=== PATIENT | female | born 1985 | race Caucasian/White ===

== ENCOUNTER 2017-10-03 13:05 | Emergency (ER) | payer OTHER, MEDICAID, SELFPAY ==
[2017-10-03 13:13] VITALS: BP 150/97; PULSE 101; RESP 16; TEMP 36.9; O2SAT 95; BMI 34.0
--- NOTE | 2017-10-03 13:59 | DI.US.S_ITS ---
PROCEDURE: US PELVIC COMPLETE INDICATIONS: PAIN, BLEEDING TECHNIQUE: Real-time scanning was performed of the pelvic organs, with image documentation. Additional endovaginal scanning was necessary due to incomplete visualization of the adnexal and endometrial structures by transabdominal scanning. COMPARISON: None. FINDINGS: Transabdominal scanning: Limited scanning through the kidneys shows no hydronephrosis. No pathologic free abdominal or pelvic fluid. Endovaginal scanning: Uterus: Uterus is anteverted measuring 7.0 x 3.2 x 4.2 cm. The endometrium measures 7.9 mm in combined thickness. Ovaries: Right ovary measures 4.0 x 2.2 x 2.1 cm. Left ovary measures 2.5 x 1.6 x 2.0 cm. IMPRESSION: Normal pelvic ultrasound exam. No findings to explain clinical symptoms. Dictated by: Elina Asif M.D. on 10/03/2017 at 15:47 Approved by: Elina Asif M.D. on 10/03/2017 at 15:49
[2017-10-03] MEDS: HALOPERIDOL 5 MG/ML VIAL 1 MG IV (14:07)
[2017-10-03] MEDS: HYDROMORPHONE 0.5 MG INJ 1 MG IV (14:07)
[2017-10-03 14:11] LABS: Add Manual Diff / Slide Review NO; Basophils Percent Auto 0.2 % (0-2); Eosinophils Percent Auto 2.1 % (2-4); Hematocrit 41.8 % (36-46); Hemoglobin 14.5 g/dL (12.0-16.0); Lymphocytes Percent Auto 36.1 % (25-40); Mean Corpuscular HGB Conc 34.7 % (30-36); Mean Corpuscular Hemoglobin 29.5 PG (26-34); Mean Corpuscular Volume 85.2 fL (80-100); Monocytes Percent Auto 7.7 % (3-14); Neutrophils Absolute Auto 5200 /uL (3000-5900); Neutrophils Percent Auto 53.9 % (50-75); Platelet Count 314 X10^3/uL (150-400); Red Cell Distribution Width 13.8 % (11.6-14.8); White Blood Cell Count 9.6 X10^3/uL (4.5-11.0)
[2017-10-03 14:24] LABS: Alanine Aminotransferase 18 IU/L (9-52); Albumin 4.7 g/dL (3.5-5.0); Albumin Globulin Ratio 1.7 (1.0-2.8); Alkaline Phosphatase 59 U/L (38-126); Aspartate Aminotransferase 19 IU/L (14-36); Bilirubin Total 0.4 mg/dL (0.2-1.3); Blood Urea Nitrogen 10 mg/dL (7-17); Calcium 9.8 mg/dL (8.4-10.2); Carbon Dioxide 24 mmol/L (22-32); Chloride 105 mmol/L (98-107); Estimated Glomerular Filt Rate > 60.0 mL/min (>60); Globulin 2.7 g/dL (1.7-4.1); Glucose 102 mg/dL (70-100); HEMOLYSIS < 15 (0-50); Lipase 69 U/L (23-300); Potassium 4.3 mmol/L (3.4-5.1); Sodium 140 mmol/L (137-145); Total Protein 7.4 g/dL (6.3-8.2)
[2017-10-03 14:49] VITALS: BP 119/75; PULSE 90; RESP 16; TEMP 36.4; O2SAT 100
[2017-10-03 15:29] LABS: Bacteria Urine None Seen
[2017-10-03 16:07] LABS: Appearance Urine UA CLEAR; Bilirubin Urine UA NEGATIVE (NEGATIVE); Color Urine UA YELLOW; Glucose Urine UA NEGATIVE (Normal); Ketones Urine UA NEGATIVE (NEGATIVE); Leukocyte Esterase Urine UA NEGATIVE (NEGATIVE); Nitrite Urine UA Negative (Negative); Occult Blood Urine UA 3+ (Negative); Protein Urine UA NEGATIVE (Negative); Specific Gravity Urine UA 1.015 (1.000-1.035); Urobilinogen Urine UA 0.2 E.U./dL (0.2)
[2017-10-03 16:14] LABS: Culture Indicated Urine Cult Not Indicated; RBC Urine 10-30/HPF (0-5/HPF); Squamous Epithelial Cell Urine 5-10 /HPF; WBC Urine 1-5/HPF (0-5/HPF)
[2017-10-03 16:41] VITALS: BP 130/83; PULSE 91; RESP 16; TEMP 36.7; O2SAT 99
--- NOTE | 2017-10-03 16:50 | DI.CT.S_ITS ---
PROCEDURE: CT ABDOMEN PELVIS W CON INDICATIONS: lower abdominal pain TECHNIQUE: After the administration of intravenous contrast, 5 mm thick sections acquired from the diaphragm to the symphysis. 5 mm coronal and sagittal reformats were acquired. For radiation dose reduction, the following was used: automated exposure control, adjustment of mA and/or kV according to patient size. COMPARISON: None. FINDINGS: Image quality: Excellent. ABDOMEN: Lung bases: Lung bases are clear. Heart size is normal. Solid organs: Liver is normal in size and enhancement. Gallbladder appears normal, partially contracted. Biliary system is non dilated. Pancreas enhances normally. Spleen is normal in size and enhancement. No adrenal nodules. Kidneys demonstrate normal size and enhancement, without hydronephrosis. Peritoneum and bowel: Bowel loops demonstrate normal wall thickness and caliber. No free fluid or air. Nodes and vessels: No retroperitoneal or mesenteric adenopathy by size criteria. Aorta and inferior vena cava are normal in size. Miscellaneous: No ventral hernias. PELVIS: Genitourinary: Bladder wall thickness is normal. Miscellaneous: No inguinal hernias or adenopathy. Bones: No suspicious bony lesions. No vertebral body compression fractures. IMPRESSION: Normal retinal appendix could not be located but there is no CT evidence of appendicitis. No diverticulitis is found. No sign of a ruptured ovarian cyst. Overall the source of reported lower abdominal pain is not identified. Dictated by: Dave Silveira M.D. on 10/03/2017 at 17:14 Approved by: Dave Silveira M.D. on 10/03/2017 at 17:15
[2017-10-03 16:54] VITALS: BP 124/70; PULSE 76; RESP 14; O2SAT 97
--- NOTE | 2017-10-03 17:40 | ED_ITS ---
HPI - Female Genitourinary General Chief complaint: Urogenital-Female Stated complaint: OVARIAN CYST DISEASE, PAINFUL Time Seen by Provider: 10/03/17 13:58 History of Present Illness HPI Narrative: HPI 32 y/o female with a history of ovarian cyst presents complaining of severe cramping lower abdominal pain and vaginal bleeding of approximately 18 hours duration; LMP 2 weeks ago. Denies fevers, chills, nausea, vomiting, dysuria, hematuria, . No known history of kidney stones, is sexually active. M/S/F/SocHx notable for: please see HPI; remainder reviewed with patient and in chart. ROS: Negative constitutional, eye, cardiovascular, pulmonary, GI, , MSK, skin , neurologic, psychiatric, endocrine unless noted in the HPI. Exam Gen: pleasant, laying on side, moaning, sweating heavily. HEENT: NC, AT, PEERL, EOMI. Resp: Clear to auscultation bilaterally, normal work of breathing, no accessory muscle usage. Card: Regular rate and rhythm with no murmurs, rubs, or gallops, extremities warm and well perfused. GI: Non-tender to palpation throughout all quadrants, no epigastric tenderness to palpation. No rebound, no guarding. : Chaperoned exam with normal female external genitalia, vaginal canal visually normal without lesions, ongoing dark bloody discharge from cervical os. MSK: No visible deformities, strength and tone without visually appreciable deficit. Skin: Normal color with no visible lesions. Neuro: AO x 3, no facial asymmetry, vision and hearing WNL. Psych: Mood and affect appropriate. Labs / Imaging (pertinent): WBC 9.6, Hb 14.5, PLT 314, Na 140, K 4.3, lipase 69, AST 19, ALT 18. HCG negative. GC and wet [place] pending. UA ? negative nitrites, negative leukocyte esterase, 5-10 epithelial cells, 10- 30 RBCs, 1-5 WBCs, no bacteria. Pelvic Ultrasound: normal pelvic ultrasound exam. No findings to explain clinical symptoms. CT abdomen/pelvis: normal retinal appendix could not be located but there is no CT evidence of appendicitis. No diverticulitis is found. No sign of a ruptured ovarian cyst. Overall the source of reported lower abdominal pain is not identified. MDM Previous chart, nursing note, and vitals reviewed. A: 32 y/o female with a history of ovarian cyst presents complaining of severe cramping lower abdominal pain and vaginal bleeding of approximately 18 hours duration; LMP 2 weeks ago. DDx: hemorrhagic cyst, ovarian torsion, , ectopic , endometriosis, PID, tuboovarian abscess, UTI, pyelonephritis, appendicitis, ureterolithiasis,. Evaluation: patient with vaginal bleeding from her cervical os, history and exam without clear findings suggestive of PID, negative test, transvaginal ultrasound without evidence of abnormality, CT abdomen pelvis without evidence of abnormality, CBC, CMP clinically WNL. UA without evidence of infection. Suspect cramping secondary to abnormal uterine bleeding. Hemodynamically stable. RX for [place] 5-325?10 provided. Patient discharge with ANESTHESIOLOGY RESIDENT follow-up recommended. Impression: cramping, vaginal bleeding (please reference below for remainder of encounter information) Related Data Home Medications Medication Instructions Recorded Confirmed acetaminophen-pamabrom [Midol] 1 tab PO PRN PRN 10/03/17 10/03/17 albuterol sulfate [ProAir HFA] 1 puff INHALATION PRN PRN 10/03/17 10/03/17 alprazolam 0.5 mg PO PRN PRN 10/03/17 10/03/17 buspirone 20 mg PO QPM 10/03/17 10/03/17 fluticasone-salmeterol [Advair 1 puff INHALATION BID 10/03/17 10/03/17 Diskus] ibuprofen 1 dose PO PRN PRN 10/03/17 10/03/17 mirtazapine 45 mg PO QPM 10/03/17 10/03/17 quetiapine 25 - 50 mg PO BEDTIME 10/03/17 10/03/17 sertraline 100 mg PO QPM 10/03/17 10/03/17 sumatriptan succinate 1 tab PO PRN PRN 10/03/17 10/03/17 Allergies Allergy/AdvReac Type Severity Reaction Status Date / Time acetaminophen [From Vicodin] Allergy Intermediate Hives Verified 10/03/17 13:17 hydrocodone [From Vicodin] Allergy Intermediate Hives Verified 10/03/17 13:17 Exam Initial Vital Signs Initial Vital Signs: Vital Signs Temperature 98.4 F 10/03/17 13:13 Pulse Rate 101 H 10/03/17 13:13 Respiratory Rate 16 10/03/17 13:13 Blood Pressure 150/97 H 10/03/17 13:13 Pulse Oximetry 95 10/03/17 13:13 Course Orders Ordered: ED Orders 10/03/17 13:59 US pelvic complete Stat 10/03/17 14:00 Complete Blood Count AUTO DIFF Stat Comprehensive Metabolic Panel Stat Lipase Stat 10/03/17 14:30 Chlamydia/Gonorrhea RNA (SWAB) Stat Wet Prep Tric BV Helen Stat 10/03/17 15:20 Urinalysis and Microscopic Stat 10/03/17 16:50 CT abdomen pelvis w con Stat 10/03/17 17:37 Wet Prep Tric BV Helen Stat Discontinued Medications Haloperidol (Haldol) 1 mg IV NOW ONE Stop: 10/03/17 13:59 Last Admin: 10/03/17 14:07 Dose: 1 mg Haloperidol (Haldol) 2 mg IV NOW ONE Stop: 10/03/17 17:35 Hydromorphone HCl (Dilaudid) 1 mg IV NOW ONE Stop: 10/03/17 13:59 Last Admin: 10/03/17 14:07 Dose: 1 mg Hydromorphone HCl (Dilaudid) 0.5 mg IV NOW ONE Stop: 10/03/17 17:35 Ketorolac Tromethamine (Toradol) 15 mg IV NOW ONE Stop: 10/03/17 17:35 Vital Signs - 8 hr 10/03/17 13:13 10/03/17 14:49 10/03/17 16:41 Temperature 98.4 F 97.6 F 98.0 F Pulse Rate 101 H 90 91 H Respiratory Rate 16 16 16 Blood Pressure 150/97 H Blood Pressure [Left Arm] 119/75 130/83 H Pulse Oximetry 95 100 99 10/03/17 16:54 Temperature Pulse Rate 76 Respiratory Rate 14 Blood Pressure Blood Pressure [Left Arm] 124/70 H Pulse Oximetry 97 MDM - Female Genitourinary Lab Data Result diagrams: 10/03/17 14:00 10/03/17 14:00 Lab Results 10/03/17 10/03/17 10/03/17 Range/Units 14:00 14:00 15:20 WBC 9.6 (4.5-11.0) X10^3/uL RBC 4.90 (4.0-5.2) X10^6/uL Hgb 14.5 (12.0-16.0) g/dL Hct 41.8 (36-46) % MCV 85.2 (80-100) fL MCH 29.5 (26-34) PG MCHC 34.7 (30-36) % RDW 13.8 (11.6-14.8) % Plt Count 314 (150-400) X10^3/uL Neut % (Auto) 53.9 (50-75) % Lymph % (Auto) 36.1 (25-40) % Haakon % (Auto) 7.7 (3-14) % Eos % (Auto) 2.1 (2-4) % Baso % (Auto) 0.2 (0-2) % Neut # (Auto) 5200 (1563-4384) /uL Sodium 140 (137-145) mmol/L Potassium 4.3 (3.4-5.1) mmol/L Chloride 105 (98-107) mmol/L Carbon Dioxide 24 (22-32) mmol/L BUN 10 (7-17) mg/dL Creatinine 1.00 (0.52-1.04) mg/dL Estimated GFR > 60.0 (>60) mL/min BUN/Creatinine Ratio 10.0 (6-22) Glucose 102 H (70-100) mg/dL Calcium 9.8 (8.4-10.2) mg/dL Total Bilirubin 0.4 (0.2-1.3) mg/dL AST 19 (14-36) IU/L ALT 18 (9-52) IU/L Alkaline Phosphatase 59 (38-126) U/L Total Protein 7.4 (6.3-8.2) g/dL Albumin 4.7 (3.5-5.0) g/dL Globulin 2.7 (1.7-4.1) g/dL Albumin/Globulin Ratio 1.7 (1.0-2.8) Lipase 69 (23-300) U/L Urine Color Yellow Urine Appearance Clear Urine pH 7.0 (4.5-8.0) Ur Specific [place] 1.015 (1.000-1.035) Urine Protein Negative (Negative) Urine Glucose (UA) Negative (Normal) g/dL Urine Ketones Negative (NEGATIVE) Urine Occult Blood 3+ H (Negative) Urine Nitrate Negative (Negative) Urine Bilirubin Negative (NEGATIVE) Urine Urobilinogen 0.2 (0.2) E.U./dL Ur Leukocyte Esterase Negative (NEGATIVE) Urine RBC 10-30/hpf H (0-5/HPF) Urine WBC 1-5/hpf (0-5/HPF) Ur Squamous Epith Cells 5-10 /hpf H Urine Bacteria None seen (None) Ur Culture Indicated? Cult not indicated Micro UA Comment Not Reportable Discharge Plan Departure Prescriptions: No Action quetiapine 25 mg tablet 25 - 50 mg PO BEDTIME RF: 0 sumatriptan succinate 100 mg tablet 1 tab PO PRN PRN (Reason: Migraine Headache) RF: 0 alprazolam 0.5 mg tablet 0.5 mg PO PRN PRN (Reason: Panic Attack(S)) RF: 0 mirtazapine 45 mg tablet 45 mg PO QPM RF: 0 fluticasone-salmeterol [Advair Diskus] 100-50 mcg/dose blister with device 1 puff Inhalation BID RF: 0 albuterol sulfate [ProAir HFA] 90 mcg/actuation HFA aerosol inhaler 1 puff Inhalation PRN PRN (Reason: Shortness Of Breath) RF: 0 sertraline 50 mg tablet 100 mg PO QPM RF: 0 acetaminophen-pamabrom [Midol] 500-25 mg Tablet 1 tab PO PRN PRN (Reason: Cramps) RF: 0 buspirone 10 mg Tablet 20 mg PO QPM RF: 0 ibuprofen 200 mg Tablet 1 dose PO PRN PRN (Reason: Pain, Mild) RF: 0
[2017-10-03] MEDS: HALOPERIDOL 5 MG/ML VIAL 2 MG IV (18:05)
[2017-10-03] MEDS: KETOROLAC 60 MG/2 ML VIAL 15 MG IV (18:05)
[2017-10-03] MEDS: HYDROMORPHONE 1 MG INJ 0.5 MG IV (18:05)
[2017-10-03 18:29] VITALS: BP 131/85; PULSE 86; RESP 16; O2SAT 95
== END 2017-10-03 18:38 | disposition home or self-care (01) ==
PROVIDERS: Emergency Provider Emergency Medicine; Family Provider Family Medicine
DX: N93.9 Abnormal uterine and vaginal bleeding, unspecified (principal)
CPT/HCPCS: 36591; 74177; 76830; 76856; 80053; 81001; 81025; 83690; 85025; 87210; 87491; 87591; 96374; 96375; 96376; 99283; 99284; J1170; J1630; J1885

== ENCOUNTER 2017-12-13 11:32 | Emergency (ER) | payer OTHER, MEDICAID, SELFPAY ==
[2017-12-13 11:38] VITALS: BP 139/88; PULSE 89; RESP 14; TEMP 36.4; O2SAT 96; BMI 34.7
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
[2017-12-13 12:44] VITALS: BP 122/72; PULSE 72; RESP 14; O2SAT 98
== END 2017-12-13 12:46 | disposition home or self-care (01) ==
PROVIDERS: Emergency Provider Internal Medicine; Family Provider Family Medicine
DX: S16.1XXA Strain of muscle, fascia and tendon at neck level, initial encounter (principal); S29.019A Strain of muscle and tendon of unspecified wall of thorax, initial encounter; M62.830 Muscle spasm of back; V43.52XA Car driver injured in collision with other type car in traffic accident, initial encounter
CPT/HCPCS: 99282

== ENCOUNTER → 2019-05-14 13:40 | Outpatient (CLI) | payer OTHER, SELFPAY ==
[2019-05-14 16:07] LABS: BUN Creatinine Ratio 21.3 (6-22); Blood Urea Nitrogen 20 mg/dL (7-17); Calcium 10.3 mg/dL (8.4-10.2); Carbon Dioxide 29 mmol/L (22-32); Chloride 100 mmol/L (98-107); Estimated Glomerular Filt Rate > 60.0 mL/min (>60); Glucose 90 mg/dL (70-100); HEMOLYSIS < 15 (0-50); Potassium 4.8 mmol/L (3.4-5.1); Sodium 138 mmol/L (137-145)
== END ==
PROVIDERS: Family Provider Family Medicine; Referring Provider Psychiatry & Neurology Psychiatry; Visit Provider Psychiatry & Neurology Psychiatry
DX: Z51.81 Encounter for therapeutic drug level monitoring (principal); F43.12 Post-traumatic stress disorder, chronic; Z79.899 Other long term (current) drug therapy
CPT/HCPCS: 36415; 80048

== ENCOUNTER 2019-07-20 09:34 | Emergency (ER) | payer OTHER, SELFPAY ==
[2019-07-20 09:40] VITALS: BP 132/74; PULSE 80; RESP 14; TEMP 36.9; O2SAT 99
--- NOTE | 2019-07-20 09:50 | ED_ITS ---
HPI - Headache General Chief Complaint: Headache Stated Complaint: Dr sent her in for migraine shot Time Seen by Provider: 07/20/19 09:37 Source: patient Mode of arrival: Ambulatory Limitations: no limitations History of Present Illness HPI Narrative: 34-year-old female. History of migraines and anxiety/depression here for evaluation of 3 days of which she describes as her normal migraine headache. States it was a gradual onset. Has photophobia. Sound makes her headache worse. Also has blurry vision. No balance issues. Has tried her home medications without any improvement. She states that her home medications normally work for her but this time they have not. Contact her primary provider told her to come to the emergency department. Related Data Home Medications Medication Instructions Recorded Confirmed acetaminophen-pamabrom [Midol] 1 tab PO PRN PRN 10/03/17 07/02/19 albuterol sulfate [ProAir HFA] 1 puff INHALATION PRN PRN 10/03/17 07/02/19 sumatriptan succinate 1 tab PO PRN PRN 10/03/17 07/02/19 cholecalciferol (vitamin D3) 125 5,000 unit PO DAILY 01/04/19 07/02/19 mcg (5,000 unit) capsule melatonin 3 mg tablet 6 mg PO DAILY 01/04/19 07/02/19 [id number] tab PO 01/04/19 07/02/19 propranolol 10 mg tablet 20 mg PO BID tab 01/04/19 07/02/19 mirtazapine 45 mg tablet 22.5 mg PO QPM tab 06/15/19 07/02/19 Previous Rx's Medication Instructions Recorded meloxicam 15 mg PO DAILY #10 tab 12/13/17 alprazolam 1 mg tablet 1 mg PO BID PRN #60 tab 07/02/19 lamotrigine 100 mg tablet 200 mg PO BEDTIME 30 Days #60 tab 07/02/19 lamotrigine 25 mg tablet 25 mg PO BEDTIME #42 tab 07/02/19 desvenlafaxine 100 mg 100 mg PO QAM #30 tab 07/16/19 tablet,extended release 24 hr Allergies Allergy/AdvReac Type Severity Reaction Status Date / Time adhesive tape Allergy Intermediate miguel skin Verified 07/20/19 09:46 buspirone AdvReac Intermediate agitation Verified 05/19/20 09:46 hydrocodone [From Vicodin] AdvReac Intermediate Flushing Verified 07/20/19 09:46 Review of Systems Constitutional Constitutional: Denies fatigue, Denies fever(s) and Reports headache(s) Eyes Eyes: Reports blurry vision and Reports photophobia ENT Ears, Nose, Mouth, and Throat: Reports headache(s), Denies sinus pressure and Denies sore throat Cardiovascular Cardiovascular: Denies chest pain and Denies dyspnea Respiratory Respiratory: Denies dyspnea Gastrointestinal Gastrointestinal: Denies abdominal pain and Reports nausea Musculoskeletal Musculoskeletal: Denies back pain, Denies myalgias and Denies arthralgias Integumentary/Breasts Skin/Breast: Denies rash Neurologic Neurologic: Denies behavioral changes and Reports headache(s) Psychiatric Psychiatric: Denies behavioral changes Endocrine Endocrine: Denies fatigue Hematologic/Lymphatic Hematologic/Lymphatic: Denies easy bleeding and Denies easy bruising Patient History Medical History Anxiety and depression (Chronic) Exercise-induced asthma (Chronic) Migraine (Chronic) Pneumonia (Resolved) Surgical History (Updated 12/13/17 @ 12:43 by Erica Sanford PA-C) History of right knee surgery (Resolved) Social History Smoking Status: Never smoker Smoking Status: Never smoker alcohol intake frequency: holidays/special occasions only Substance Use Type: does not use Exam Initial Vital Signs Initial Vital Signs: Vital Signs Temperature 98.5 F 07/20/19 09:40 Pulse Rate 80 07/20/19 09:40 Respiratory Rate 14 07/20/19 09:40 Blood Pressure 132/74 07/20/19 09:40 Pulse Oximetry 99 07/20/19 09:40 Const General: cooperative and comfortable Limitations: mental status not altered HENMT Head: normal to inspection and normocephalic Neck Neck: no meningeal signs Resp Effort & Inspection: normal respiratory effort Cardio Rate: regular rate Skin Lesions: no lesions Neuro General: alert, awake and oriented x3 Cognition: normal cognition Speech: speech normal Gait: normal gait Extrem General: normal to inspection Psych Appearance: grossly normal and well kempt Scores GCS [place] coma scale eye opening: Spontaneous [place] coma scale verbal response: Orientated [place] coma scale motor response: Obey commands [place] coma scale total score: 15 Course Orders Ordered: Discontinued Medications Acetaminophen (Tylenol) 650 mg PO NOW ONE Stop: 07/20/19 09:52 Last Admin: 07/20/19 09:56 Dose: 650 mg Documented by: RISHABH Diphenhydramine HCl (Benadryl) 25 mg IV NOW ONE Stop: 07/20/19 09:52 Last Admin: 07/20/19 09:56 Dose: 25 mg Documented by: RISHABH Sodium Chloride (Normal Saline 0.9%) 1,000 mls @ 1,000 mls/hr IV BOLUS ONE Stop: 07/20/19 10:50 Last Infusion: 07/20/19 10:52 Dose: 0 mls/hr Documented by: Admin: 07/20/19 09:56 Dose: 1,000 mls/hr Documented by: RISHABH Ketorolac Tromethamine (Toradol) 30 mg IV NOW ONE Stop: 07/20/19 09:52 Last Admin: 07/20/19 09:57 Dose: 30 mg Documented by: RISHABH Metoclopramide HCl (Reglan) 10 mg IV NOW ONE Stop: 07/20/19 09:52 Last Admin: 07/20/19 09:57 Dose: 10 mg Documented by: RISHABH Vital Signs Vital signs: Vital Signs - 8 hr 07/20/19 09:40 Temperature 98.5 F Pulse Rate 80 Respiratory Rate 14 Blood Pressure 132/74 Pulse Oximetry 99 MDM - Headache MDM Narrative Medical decision making narrative: 34-year-old female history of migraines here with what sounds like a typical migraine. Low suspicion for meningitis. Low suspicion for subarachnoid hemorrhage. Reports improvement in symptoms after medications. Patient states she feels well enough to go home. Feel we could hold on further workup for now. She was given return precautions. She expressed understanding and agreement. Discharge Plan Departure Patient Disposition: Home Clinical Impression: Migraine Qualifiers: Migraine type: unspecified Status migrainosus presence: without status migrainosus Intractability: not intractable Qualified Code(s): G43.909 - Migraine, unspecified, not intractable, without status migrainosus Instructions: DI for Migraine Activity Restrictions/Additional Instructions: Continue to take all of your medications as directed. Contact your primary provider for follow-up. Return to the emergency department for any new or worsening symptoms Prescriptions: No Action cholecalciferol (vitamin D3) 5,000 unit capsule 5,000 unit PO DAILY RF: 0 Multiple Vitamin, Womens Tablet PO RF: 0 melatonin 3 mg tablet 6 mg PO DAILY RF: 0 lamotrigine 25 mg tablet 25 mg PO BEDTIME Qty: 42 RF: 0 lamotrigine 100 mg tablet 200 mg PO BEDTIME 30 Days Qty: 60 RF: 1 alprazolam 1 mg tablet 1 mg PO BID PRN (Reason: Panic) Qty: 60 RF: 1 mirtazapine 45 mg tablet 22.5 mg PO QPM RF: 0 desvenlafaxine 100 mg tablet extended release 24 hr 100 mg PO QAM Qty: 30 RF: 0 sumatriptan succinate 100 mg tablet 1 tab PO PRN PRN (Reason: Migraine Headache) RF: 0 albuterol sulfate [ProAir HFA] 90 mcg/actuation HFA aerosol inhaler 1 puff Inhalation PRN PRN (Reason: Shortness Of Breath) RF: 0 acetaminophen-pamabrom [Midol] 500-25 mg Tablet 1 tab PO PRN PRN (Reason: Cramps) RF: 0 meloxicam 15 mg tablet 15 mg PO DAILY Qty: 10 RF: 0 propranolol 10 mg tablet 20 mg PO BID RF: 0
[2019-07-20] MEDS: diphenhydrAMINE 50 MG/ML VIAL 25 MG IV (09:56)
[2019-07-20] MEDS: ACETAMINOPHEN 325 MG TABLET 650 MG PO (09:56)
[2019-07-20] MEDS: SODIUM CHLORIDE 0.9% 1,000 ML 1000 ML IV (09:56)
[2019-07-20] MEDS: METOCLOPRAMIDE 10 MG/2 ML INJ IV (09:57)
[2019-07-20] MEDS: KETOROLAC 60 MG/2 ML VIAL 30 MG IV (09:57)
[2019-07-20 11:17] VITALS: BP 116/72; PULSE 84; O2SAT 97
== END 2019-07-20 11:20 | disposition home or self-care (01) ==
PROVIDERS: Emergency Provider Emergency Medicine; Family Provider Family Medicine
DX: G43.909 Migraine, unspecified, not intractable, without status migrainosus (principal)
CPT/HCPCS: 96361; 96374; 96375; 99284; J1200; J1885; J2765